=== PATIENT | female | born 1995 | race Caucasian/White ===

== ENCOUNTER 2018-01-05 21:09 | Emergency (ER) | payer SELFPAY ==
--- NOTE | 2018-01-05 23:46 | ER Document Report ---
ED Respiratory Problem - General Chief Complaint: Breathing Difficulty Stated Complaint: BREATHING DIFFICULTY Time Seen by Provider: 01/05/18 23:35 Notes: Patient is a 22-year-old female that comes emergency department for chief complaint of discomfort when taking deep breath for the past 5 hours. She states that when she presented she will feel pain across her entire chest. She states when she is breathing normally she feels okay. She denies wheezing, cough, congestion, fever, injury, dizziness, back pain. She states she had pleurisy once in the past and this feels similar. Past medical history of Asthma, used her inhaler once but did not change anything. Only other medical history is jaw surgery. TRAVEL OUTSIDE OF THE [place] IN LAST 30 DAYS: No - Related Data Allergies/Adverse Reactions: No Known Allergies Allergy (Verified 04/12/12 10:10) Past Medical History - General Information source: Patient - Social History Smoking Status: Never Smoker Frequency of alcohol use: None Drug Abuse: None Lives with: Alone Family History: Reviewed & Not Pertinent Patient has suicidal ideation: No Patient has homicidal ideation: No Pulmonary Medical History: Reports: Hx Asthma Renal/ Medical History: Denies: Hx Peritoneal Dialysis Psychiatric Medical History: Reports: Hx Anxiety, Hx Depression - mood disorder - Immunizations Immunizations up to date: Yes Hx Diphtheria, Pertussis, Tetanus Vaccination: Yes Review of Systems - Review of Systems Constitutional: No symptoms reported EENT: No symptoms reported Cardiovascular: See HPI Respiratory: See HPI Gastrointestinal: No symptoms reported Genitourinary: No symptoms reported Female Genitourinary: No symptoms reported Musculoskeletal: No symptoms reported Skin: No symptoms reported Hematologic/Lymphatic: No symptoms reported Neurological/Psychological: No symptoms reported Physical Exam - Vital signs Vitals: Temp Pulse Resp BP Pulse Ox 98.7 F 61 15 108/60 100 01/05/18 22:55 01/05/18 22:55 01/05/18 22:55 01/05/18 22:55 01/05/18 22:55 - Notes Notes: GENERAL: Alert, interacts well. No acute distress. HEAD: Normocephalic, atraumatic. EYES: Pupils equal, round, and reactive to light. Extraocular movements intact. ENT: Oral mucosa moist, tongue midline. NECK: Full range of motion. Supple. Trachea midline. LUNGS: Clear to auscultation bilaterally, no wheezes, rales, or rhonchi. No respiratory distress. HEART: Regular rate and rhythm. No murmur ABDOMEN: Soft, non-tender. Non-distended. Bowel sounds present in all 4 quadrants. EXTREMITIES: Moves all 4 extremities spontaneously. No edema, normal radial and dorsalis pedis pulses bilaterally. No cyanosis. BACK: no cervical, thoracic, lumbar midline tenderness. No saddle anesthesia, normal distal neurovascular exam. NEUROLOGICAL: Alert and oriented x3. Normal speech. [cranial nerves II through XII grossly intact]. PSYCH: Normal affect, normal mood. SKIN: Warm, dry, normal turgor. No rashes or lesions noted. Course - Re-evaluation Re-evalutation: Patient alert and well-appearing, no signs of discomfort, clear lungs on auscultation, vital signs unremarkable. No hypoxia. Chest x-ray unremarkable, EKG unremarkable with no findings suggestive of pericarditis, pneumothorax, or acute process explaining her pleuritic pain. Possible pleurisy although this is not definite, low suspicion of emergent etiology based on her evaluation and examination. I discussed results with patient and mother, patient was provided with a dose of dexamethasone, refilled her inhaler and provided her with a spacer for future needs, discussed follow- up and return precautions, they state understanding and agreement. - Vital Signs Vital signs: Temp Pulse Resp BP Pulse Ox 98.7 F 54 L 16 97/60 L 96 01/05/18 22:55 01/06/18 01:50 01/06/18 01:50 01/06/18 01:50 01/06/18 01:50 Discharge - Discharge Clinical Impression: Pleuritic chest pain Condition: Stable Disposition: HOME, SELF-CARE Additional Instructions: Your workup does not show any concerning abnormality, your symptoms and evaluation are most consistent with pleurisy. You have been medicated for this. Use albuterol as needed for wheezing/cough as prescribed. Follow-up with primary care. Return if you worsen including spiking fever, coughing up blood, difficulty breathing, passing out, or any other concerning or worsening symptoms. Prescriptions: Albuterol Sulfate [Proair HFA Inhalation Aerosol 8.5 gm MDI] 2 puff IH Q4H PRN # 1 mdi PRN Reason:
--- NOTE | 2018-01-06 01:10 | RADIOLOGY REPORT (SQ) ---
EXAM DESCRIPTION: XR CHEST 2 VIEWS COMPLETED DATE/TME: 01/05/2018 23:44 CLINICAL HISTORY: 22 years, Female, chest pain COMPARISON: 09/10/2012 NUMBER OF VIEWS: Two view TECHNIQUE: PA and lateral chest LIMITATIONS: None. FINDINGS: Cardiac size is within normal limits. Mediastinal contour is within normal limits. No pneumothorax or pleural fluid. No consolidation. IMPRESSION: No evidence of acute process 2010 [employer]- All Rights Reserved
[2018-01-06] MEDS ORDERED: ALBUTEROL SULFATE HFA (90 MCG/PUFF) 8 GM MDI (1 MDI/ER DISP) IH ONE (01:22)
[2018-01-06] MEDS ORDERED: DEXAMETHASONE SOD PHOS INJ 10 MG/1 ML VIAL IM ONE (01:22)
[2018-01-06 04:00] VITALS: BP 97/60
--- NOTE | 2018-01-06 08:01 | EKG REPORT ---
SEVERITY:- NORMAL ECG - SINUS RHYTHM : Confirmed by: Lisa Fernando MD 06-Jan-2018 08:00:23
== END 2018-01-06 01:55 | disposition home or self-care (01) ==
LOC: ER 21:09
DX: R07.81 Pleurodynia (principal); R07.1 Chest pain on breathing; J45.909 Unspecified asthma, uncomplicated
CPT/HCPCS: 93005; 99285; 96372; 71046; 93010; J1100; J3490

== ENCOUNTER 2018-02-26 07:46 | Emergency (ER) | payer SELFPAY ==
[2018-02-26 07:51] VITALS: BP 123/77
--- NOTE | 2018-02-26 08:41 | ER Document Report ---
ED General - General Chief Complaint: Inability to Void Stated Complaint: URINARY ISSUE Time Seen by Provider: 02/26/18 08:11 Mode of Arrival: Ambulatory Information source: Patient Notes: 23-year-old female with asthma, depression, anxiety presents with complaint of dysuria and inability to urinate. Patient states she began having pain with urination approximately 10 days ago. She reports foul-smelling urine. She states that she gets urinary tract infections often but they usually self resolved. Today she states that she feels like her urethra is swollen, tender. She has not been able to urinate for 24 hours. She does have some suprapubic abdominal fullness and pressure. She denies any vaginal discharge. Last menstrual period was 2 days ago. She is not currently sexually active. She has no concern for STDs. She denies any prior similar symptoms. She states that she takes no medications on a daily basis. She denies any trauma to the labia or urethra. TRAVEL OUTSIDE OF THE [place] IN LAST 30 DAYS: No - HPI Onset: Last week Onset/Duration: Gradual, Persistent, Worse Quality of pain: Burning, Pressure Severity: Mild Associated symptoms: denies: Chest pain, Diarrhea, Fever, Nausea, Vomiting Exacerbated by: Denies Relieved by: Denies Similar symptoms previously: Yes Recently seen / treated by doctor: No - Related Data Allergies/Adverse Reactions: No Known Allergies Allergy (Verified 04/12/12 10:10) Past Medical History - General Information source: Patient, [facility] Records - Social History Smoking Status: Never Smoker Frequency of alcohol use: None Drug Abuse: None Lives with: Family Family History: Reviewed & Not Pertinent Patient has suicidal ideation: No Patient has homicidal ideation: No Pulmonary Medical History: Reports: Hx Asthma Renal/ Medical History: Denies: Hx Peritoneal Dialysis Psychiatric Medical History: Reports: Hx Anxiety, Hx Depression - mood disorder - Immunizations Immunizations up to date: Yes Hx Diphtheria, Pertussis, Tetanus Vaccination: Yes Review of Systems - Review of Systems Notes: REVIEW OF SYSTEMS: CONSTITUTIONAL : Denies fever, chills, or sweats. Denies recent illness. Denies weight loss, recent hospitalizations. EENT: Denies visual changes, eye pain. Denies nasal or sinus congestion or discharge. Denies sore throat, oral lesions, difficulty swallowing. CARDIOVASCULAR: Denies chest pain. Denies palpitations. Denies lower extremity edema. RESPIRATORY: Denies cough, cold, or chest congestion. Denies shortness of breath, wheezing. GASTROINTESTINAL: Denies abdominal pain Denies nausea, vomiting, or diarrhea. Denies blood in vomitus, stools, or per rectum. Denies black, tarry stools. Denies constipation. GENITOURINARY: Denies vaginal discharge. MUSCULOSKELETAL: Denies back or neck pain or stiffness. Denies joint pain or swelling. SKIN: Denies rash, lesions or sores. HEMATOLOGIC : Denies easy bruising or bleeding. LYMPHATIC: Denies swollen glands. NEUROLOGICAL: Denies confusion or altered mental status. Denies passing out or loss of consciousness. Denies dizziness or lightheadedness. Denies headache. Denies weakness or paralysis. Denies problems difficulty with ambulation, slurred speech. Denies sensory loss, numbness, or tingling. Denies seizures. PSYCHIATRIC: Denies anxiety or stress. Denies depression, suicidal ideation, or homicidal ideation. Denies visual or auditory hallucinations. Physical Exam - Vital signs Vitals: Temp Pulse Resp BP Pulse Ox 98.2 F 65 16 123/77 98 02/26/18 07:50 02/26/18 07:50 02/26/18 07:50 02/26/18 07:50 02/26/18 07:50 Interpretation: No: Hypertensive, Hypoxic, Febrile - Notes Notes: PHYSICAL EXAMINATION: GENERAL: Well-appearing, well-nourished and in no acute distress. HEAD: Atraumatic, normocephalic. EYES: Pupils equal round and reactive to light, extraocular movements intact, conjunctiva are normal. ENT: Nares patent, oropharynx clear without exudates. Moist mucous membranes. NECK: Normal range of motion, supple without lymphadenopathy LUNGS: Breath sounds clear to auscultation bilaterally and equal. No wheezes rales or rhonchi. HEART: Regular rate and rhythm without murmurs ABDOMEN: Soft, nontender, nondistended abdomen. No guarding, no rebound. No masses appreciated. Female : No obvious swelling to the urethra or labia. Musculoskeletal: Normal range of motion, no pitting or edema. No cyanosis. NEUROLOGICAL: Cranial nerves grossly intact. Normal speech, normal gait. Normal sensory, motor exams PSYCH: Normal mood, normal affect. SKIN: Warm, Dry, normal turgor, no rashes or lesions noted. Bedside ultrasound of the bladder was performed to assess volume. Patient has 30 cc at this time. Course - Re-evaluation Re-evalutation: Laboratory 02/26/18 09:56 Urine Color YELLOW Urine Appearance CLOUDY Urine pH 5.0 Ur Specific [place] 1.024 Urine Protein 30 H Urine Glucose (UA) NEGATIVE Urine Ketones NEGATIVE Urine Blood SMALL H Urine Nitrite POSITIVE H Urine Bilirubin NEGATIVE Urine Urobilinogen NEGATIVE Ur Leukocyte Esterase LARGE H Urine WBC (Auto) >182 Urine RBC (Auto) 20 Urine Bacteria (Auto) 2+ Squamous Epi Cells Auto 1 U Non-Squamous Epis Auto 3 Calcium Oxalate Cr Auto FEW Urine Mucus (Auto) MANY Urine Ascorbic Acid 40 H Urine HCG, Qual NEGATIVE 02/26/18 11:12 3-year-old female with asthma, depression, anxiety presents with complaint of dysuria and inability to urinate. Patient states she began having pain with urination approximately 10 days ago. She reports foul-smelling urine. She states that she gets urinary tract infections often but they usually self resolved. Today she states that she feels like her urethra is swollen, tender. She has not been able to urinate for 24 hours. She does have some suprapubic abdominal fullness and pressure. She denies any vaginal discharge. Last menstrual period was 2 days ago. She is not currently sexually active. She has no concern for STDs. She denies any prior similar symptoms. She states that she takes no medications on a daily basis. She denies any trauma to the labia or urethra. Patient was seen by myself upon arrival. Vital signs were reviewed. Patient is afebrile, normotensive and not hypoxic. Patient does not appear toxic or dehydrated. They are in no acute distress. Previous medical records and nursing notes reviewed. Physical exam within normal limits. Bedside ultrasound was performed to assess for urinary retention and only showed 30 cc of urine. Patient did receive IV fluids, Rocephin during her ED course. She will be discharged home with prescription for Keflex. Patient provided the opportunity to ask questions, and express concerns. Discharge instructions discussed. Patient is agreeable with discharge home. Return indications explained and discussed with the patient who displays understanding. Patient encouraged to return to the emergency department immediately with any concerns. 02/26/18 11:12 - Vital Signs Vital signs: Temp Pulse Resp BP Pulse Ox 98.2 F 65 16 123/77 98 02/26/18 07:50 02/26/18 07:50 02/26/18 07:50 02/26/18 07:50 02/26/18 07:50 - Laboratory Laboratory results interpreted by me: 02/26/18 09:56 Urine Protein 30 H Urine Blood SMALL H Urine Nitrite POSITIVE H Ur Leukocyte Esterase LARGE H Urine Ascorbic Acid 40 H Procedures - Ultrasound/Bedside Ultrasound/Bedside Time completed: 08:41 - Bedside ultrasound of the bladder was performed to assess volume. Images were taken in transverse and sagittal views. Volume is approximately 30 cc not indicative of urinary retention. Images attached to chart. Discharge - Discharge Clinical Impression: Dysuria, Pain in urethra UTI (urinary tract infection) Qualifiers: Urinary tract infection type: site unspecified Hematuria presence: with hematuria Qualified Code(s): N39.0 - Urinary tract infection, site not specified ; R31.9 - Hematuria, unspecified; R31.9 - Hematuria, unspecified Hematuria Qualifiers: Hematuria type: unspecified type Qualified Code(s): R31.9 - Hematuria, unspecified Condition: Good Disposition: HOME, SELF-CARE Instructions: Urinary Tract Infection ([facility]) Additional Instructions: Please return to the emergency department if you are unable to take your antibiotics, develop fever or persistent vomiting. Follow up with your physician tomorrow for further care or return to the ED IMMEDIATELY if symptoms worsen or new concerns occur. If you cannot afford to follow up with your primary care physician a list of low cost clinics have been provided at the end of your discharge papers as well. Prescriptions: Cephalexin Monohydrate [Keflex 500 mg Capsule] 500 mg PO BID 5 Days #14 capsule Forms: Return to Work
[2018-02-26] MEDS ORDERED: RINGERS SOLUTION,LACTATED 1,000 ML IV ONE (09:26)
[2018-02-26 10:47] LABS: APPEARANCE,URINE CLOUDY; BILIRUBIN,URINE NEGATIVE (NEGATIVE); CALCIUM OXALATE CRYSTALS,URINE FEW /HPF; COLOR,URINE YELLOW; GLUCOSE, URINE NEGATIVE (NEGATIVE); KETONES,URINE NEGATIVE (NEGATIVE); LEUKOCYTE ESTERASE,URINE LARGE (NEGATIVE); NITRITE,URINE POSITIVE (NEGATIVE); PROTEIN,URINE 30 mg/dL (NEGATIVE); URINE SPECIFIC GRAVITY 1.024; UROBILINOGEN,URINE NEGATIVE mg/dL (<2.0)
[2018-02-26] MEDS ORDERED: CEFTRIAXONE 1 GM/D5W RTU 1 GM/50 ML RTUPB IV ONE (11:11)
[2018-02-26] MEDS ORDERED: CEFTRIAXONE INJ 1000 MG VIAL IV ONE (11:30)
== END 2018-02-26 12:27 | disposition home or self-care (01) ==
LOC: ER 07:46
DX: N39.0 Urinary tract infection, site not specified (principal); R31.9 Hematuria, unspecified
CPT/HCPCS: 99284; 96361; 96374; 81025; 81001; J0696; J7120

== ENCOUNTER 2018-03-08 05:26 | Emergency (ER) | payer SELFPAY ==
--- NOTE | 2018-03-08 05:51 | ER Document Report ---
ED Medical Screen (RME) - General Chief Complaint: Breathing Difficulty Stated Complaint: LIGHT HEADED, SHORTNESS OF BREATH Time Seen by Provider: 03/08/18 05:42 Notes: 23-year-old female with general complaints of dizziness, tightness in her chest , and awakening suddenly from sleep drenched in sweat. She states that she nightly wakes up feeling short of breath and then it quickly resolves. Past medical history of asthma, uses inhaler. TRAVEL OUTSIDE OF THE [place] IN LAST 30 DAYS: No - Related Data Allergies/Adverse Reactions: No Known Allergies Allergy (Verified 04/12/12 10:10) Past Medical History Pulmonary Medical History: Reports: Hx Asthma Renal/ Medical History: Denies: Hx Peritoneal Dialysis Psychiatric Medical History: Reports: Hx Anxiety, Hx Depression - mood disorder - Immunizations Immunizations up to date: Yes Hx Diphtheria, Pertussis, Tetanus Vaccination: Yes Physical Exam - Respiratory Respiratory status: No respiratory distress. No: Respiratory distress Chest status: Nontender. No: Tender Breath sounds: Normal. No: Decreased air movement, Wheezing
--- NOTE | 2018-03-08 06:23 | RADIOLOGY REPORT (SQ) ---
EXAM DESCRIPTION: XR CHEST 1 VIEW COMPLETED DATE/TME: 03/08/2018 05:49 CLINICAL HISTORY: chest tightness COMPARISON: 01/06/2018 FINDINGS: Single frontal view of the chest. The cardiomediastinal silhouette has normal size and contour. No consolidation, pneumothorax, or pleural effusion. No displaced rib fractures identified. Upper abdominal soft tissues are unremarkable. IMPRESSION: 1. No acute pulmonary process identified.
[2018-03-08 06:54] LABS: ABSOLUTE EOSINOPHILS # (AUTO) 0.1 10^3/uL (0.0-0.6); ABSOLUTE LYMPHOCYTES (AUTO) 2.6 10^3/uL (0.5-4.7); ABSOLUTE MONOCYTES (AUTO) 0.6 10^3/uL (0.1-1.4); ABSOLUTE NEUT (AUTO) 1.6 10^3/uL (1.7-8.2); BASOPHILS % (AUTO) 0.5 % (0-2); EOSINOPHILS % (AUTO) 1.1 % (0-6); HEMATOCRIT 38.6 % (36.0-47.0); HEMOGLOBIN 13.5 g/dL (12.0-15.5); LYMPHOCYTES % (AUTO) 52.7 % (13-45); MEAN CORPUSCULAR HEMOGLOBIN 31.1 pg (27.0-33.4); MEAN CORPUSCULAR VOLUME 89 fl (80-97); MONOCYTES % (AUTO) 13.1 % (3-13); PLATELET COUNT 209 10^3/uL (150-450); RED BLOOD COUNT 4.33 10^6/uL (3.72-5.28); SEGMENTED NEUTROPHILS % (AUTO) 32.6 % (42-78); TOTAL CELLS COUNTED % (AUTO) 100 %; WHITE BLOOD COUNT 4.8 10^3/uL (4.0-10.5)
[2018-03-08 07:34] LABS: ANION GAP 12 (5-19); BLOOD UREA NITROGEN 12 mg/dL (7-20); CALCIUM 9.2 mg/dL (8.4-10.2); CARBON DIOXIDE 23 mmol/L (22-30); CHLORIDE 107 mmol/L (98-107); GLUCOSE 92 mg/dL (75-110); POTASSIUM 4.4 mmol/L (3.6-5.0)
--- NOTE | 2018-03-08 08:06 | ER Document Report ---
ED General - General Chief Complaint: Breathing Difficulty Stated Complaint: LIGHT HEADED, SHORTNESS OF BREATH Time Seen by Provider: 03/08/18 05:42 TRAVEL OUTSIDE OF THE [place] IN LAST 30 DAYS: No - HPI Patient complains to provider of: Lightheadedness shortness of breath trouble sleeping Notes: Patient coming in for evaluation for the above-stated symptoms. Patient states her last month and a half she has been waking up in the middle night with the symptoms. States the symptoms usually last only for a few seconds lasting longer tonight along with diaphoresis. Patient upon my evaluation is asymptomatic. Patient denies having any night terrors night tremors denies having these episodes in the past. Patient denies any increased stress in her life denies any issues with anxiety or depression. Patient denies drug abuse. Resting asleep on my evaluation denies any past medical history. - Related Data Allergies/Adverse Reactions: No Known Allergies Allergy (Verified 04/12/12 10:10) Past Medical History - Social History Smoking Status: Never Smoker Frequency of alcohol use: Rare Family History: Reviewed & Not Pertinent Patient has suicidal ideation: No Patient has homicidal ideation: No Pulmonary Medical History: Reports: Hx Asthma Renal/ Medical History: Denies: Hx Peritoneal Dialysis Psychiatric Medical History: Reports: Hx Anxiety, Hx Depression - mood disorder - Immunizations Immunizations up to date: Yes Hx Diphtheria, Pertussis, Tetanus Vaccination: Yes Review of Systems - Review of Systems Constitutional: Other - Lightheadedness dizziness diaphoresis upon awakening EENT: No symptoms reported Cardiovascular: No symptoms reported Respiratory: No symptoms reported Gastrointestinal: No symptoms reported Genitourinary: No symptoms reported Female Genitourinary: No symptoms reported Musculoskeletal: No symptoms reported Skin: No symptoms reported Hematologic/Lymphatic: No symptoms reported Neurological/Psychological: No symptoms reported Physical Exam - Vital signs Vitals: Temp Pulse Resp BP Pulse Ox 98.5 F 61 18 102/65 98 03/08/18 05:34 03/08/18 05:34 03/08/18 05:34 03/08/18 05:34 03/08/18 05:34 Interpretation: Normal - General General appearance: Appears well, Alert - HEENT Head: Normocephalic, Atraumatic Eyes: Normal Pupils: PERRL - Respiratory Respiratory status: No respiratory distress Chest status: Nontender Breath sounds: Normal Chest palpation: Normal - Cardiovascular Rhythm: Regular Heart sounds: Normal auscultation Murmur: No - Abdominal Inspection: Normal Distension: No distension Bowel sounds: Normal Tenderness: Nontender Organomegaly: No organomegaly - Back Back: Normal, Nontender - Extremities General upper extremity: Normal inspection, Nontender, Normal color, Normal ROM , Normal temperature General lower extremity: Normal inspection, Nontender, Normal color, Normal ROM , Normal temperature, Normal weight bearing. No: Power's sign - Neurological Neuro grossly intact: Yes Cognition: Normal Orientation: AAOx4 [place] Coma Scale Eye Opening: Spontaneous [place] Coma Scale Verbal: Oriented [place] Coma Scale Motor: Obeys Commands [place] Coma Scale Total: 15 Speech: Normal Motor strength normal: LUE, RUE, LLE, RLE Sensory: Normal - Psychological Associated symptoms: Normal affect, Normal mood - Skin Skin Temperature: Warm Skin Moisture: Dry Skin Color: Normal Course - Vital Signs Vital signs: Temp Pulse Resp BP Pulse Ox 98.5 F 61 18 102/65 98 03/08/18 05:34 03/08/18 05:34 03/08/18 05:34 03/08/18 05:34 03/08/18 05:34 - Laboratory Result Diagrams: 03/08/18 06:40 03/08/18 06:40 Laboratory results interpreted by me: 03/08/18 06:40 Seg Neutrophils % 32.6 L Lymphocytes % 52.7 H Monocytes % 13.1 H Absolute Neutrophils 1.6 L Discharge - Discharge Clinical Impression: Sleep disorder Condition: Good Disposition: HOME, SELF-CARE Instructions: Anxiety ([facility]) Additional Instructions: Laboratory studies do not show any signs of significant pathology. At this time he may have underlying anxiety causing sleep disturbance. I recommend trying the Vistaril as prescribed. Also recommend following up with the food products tester listed Dr. Garay is that he will be able to perform sleep studies. Also recommend following up with your primary care physician. Return to the ER symptoms worsen. Prescriptions: Hydroxyzine Pamoate [Vistaril 25 mg Capsule] 25 mg PO QHS #14 capsule Forms: Return to Work
[2018-03-08 08:38] LABS: APPEARANCE,URINE SLIGHTLY-CLOUDY; BILIRUBIN,URINE NEGATIVE (NEGATIVE); COLOR,URINE STRAW; GLUCOSE, URINE NEGATIVE (NEGATIVE); KETONES,URINE NEGATIVE (NEGATIVE); LEUKOCYTE ESTERASE,URINE NEGATIVE (NEGATIVE); NITRITE,URINE NEGATIVE (NEGATIVE); PROTEIN,URINE NEGATIVE (NEGATIVE); URINE SPECIFIC GRAVITY 1.006; UROBILINOGEN,URINE NEGATIVE mg/dL (<2.0)
[2018-03-08 09:02] LABS: URINE AMPHETAMINES SCREEN NEGATIVE; URINE BARBITURATES SCREEN NEGATIVE; URINE BENZODIAZEPINES SCREEN NEGATIVE; URINE COCAINE SCREEN NEGATIVE; URINE MARIJUANA (THC) SCREEN NEGATIVE; URINE METHADONE SCREEN NEGATIVE; URINE PHENCYCLIDINE SCREEN NEGATIVE
[2018-03-08 10:04] VITALS: BP 98/59
--- NOTE | 2018-03-09 08:23 | EKG REPORT ---
SEVERITY:- NORMAL ECG - SINUS RHYTHM , SINUS ARRHYTHMIA : Confirmed by: John Sharp MD 09-Mar-2018 08:23:03
== END 2018-03-08 10:04 | disposition home or self-care (01) ==
LOC: ER 05:26
DX: G47.9 Sleep disorder, unspecified (principal); J45.909 Unspecified asthma, uncomplicated; R06.02 Shortness of breath; R42 Dizziness and giddiness; R61 Generalized hyperhidrosis
CPT/HCPCS: 36415; 71045; 80048; 80307; 81001; 81025; 85025; 93005; 93010; 99285

== ENCOUNTER 2018-07-17 23:08 | Emergency (ER) | payer SELFPAY ==
[2018-07-18] MEDS ORDERED: ASPIRIN 81 MG TABLET, CHEWABLE PO ONE (02:54)
[2018-07-18 03:37] LABS: ABSOLUTE EOSINOPHILS # (AUTO) 0.1 10^3/uL (0.0-0.6); ABSOLUTE LYMPHOCYTES (AUTO) 3.3 10^3/uL (0.5-4.7); ABSOLUTE MONOCYTES (AUTO) 0.5 10^3/uL (0.1-1.4); ABSOLUTE NEUT (AUTO) 1.6 10^3/uL (1.7-8.2); BASOPHILS % (AUTO) 0.6 % (0-2); EOSINOPHILS % (AUTO) 1.7 % (0-6); HEMATOCRIT 43.2 % (36.0-47.0); HEMOGLOBIN 14.8 g/dL (12.0-15.5); LYMPHOCYTES % (AUTO) 59.5 % (13-45); MEAN CORPUSCULAR HEMOGLOBIN 30.3 pg (27.0-33.4); MEAN CORPUSCULAR HGB CONC 34.2 g/dL (32.0-36.0); MEAN CORPUSCULAR VOLUME 89 fl (80-97); MONOCYTES % (AUTO) 9.2 % (3-13); PLATELET COUNT 233 10^3/uL (150-450); RED BLOOD COUNT 4.88 10^6/uL (3.72-5.28); TOTAL CELLS COUNTED % (AUTO) 100 %; WHITE BLOOD COUNT 5.5 10^3/uL (4.0-10.5)
[2018-07-18 04:15] LABS: ALANINE AMINOTRANSFERASE 9 U/L (9-52); ALBUMIN 4.5 g/dL (3.5-5.0); ALKALINE PHOSPHATASE 57 U/L (38-126); ANION GAP 11 (5-19); ASPARTATE AMINO TRANSFERASE 21 U/L (14-36); BILIRUBIN,DIRECT 0.2 mg/dL (0.0-0.4); BILIRUBIN,TOTAL 0.7 mg/dL (0.2-1.3); BLOOD UREA NITROGEN 11 mg/dL (7-20); CALCIUM 9.7 mg/dL (8.4-10.2); CARBON DIOXIDE 22 mmol/L (22-30); CHLORIDE 110 mmol/L (98-107); CREATINE KINASE 44 U/L (30-135); GLUCOSE 121 mg/dL (75-110); POTASSIUM 3.9 mmol/L (3.6-5.0); SODIUM 143.2 mmol/L (137-145); TOTAL PROTEIN 7.4 g/dL (6.3-8.2)
[2018-07-18 04:40] LABS: CREATINE KINASE MB < 0.22 ng/mL (<4.55); TROPONIN I < 0.012 ng/mL
--- NOTE | 2018-07-18 04:49 | RADIOLOGY REPORT (SQ) ---
EXAM DESCRIPTION: XR CHEST 1 VIEW COMPLETED DATE/TME: 07/18/2018 02:54 CLINICAL HISTORY: 23 years, Female, Chest Pain COMPARISON: 01/06/2018 NUMBER OF VIEWS: One TECHNIQUE: AP view of the chest LIMITATIONS: None. FINDINGS: Lungs are clear. The heart is normal in size. There is no pneumothorax or pleural effusion. There is no acute fracture IMPRESSION: No acute cardiopulmonary abnormality copyright 2010 [employer]- All Rights Reserved
[2018-07-18] MEDS ORDERED: IBUPROFEN 400 MG TABLET PO ONE (05:12)
--- NOTE | 2018-07-18 05:12 | ER Document Report ---
ED General - General Chief Complaint: Breathing Difficulty Stated Complaint: CHEST PAIN,DIZZINESS,DIFFICULTY BREATHING Time Seen by Provider: 07/18/18 04:59 Notes: Patient is a pleasant 23-year-old female presents with complaint of pain over le ft lower rib cage. No fevers. No cough or congestion. No abdominal pain. She has been ongoing for several days. Says the pain is very sharp and it occurs mostly when she goes lay on her back on her left side. It hurts when she coughs or takes a deep breath. She has a previous history of pleurisy. No recent travel outside the country. No leg pain or leg edema. No fevers. No other complaints at this time. TRAVEL OUTSIDE OF THE [place] IN LAST 30 DAYS: No - Related Data Allergies/Adverse Reactions: No Known Allergies Allergy (Verified 04/12/12 10:10) Past Medical History - Social History Smoking Status: Never Smoker Frequency of alcohol use: None Drug Abuse: None Family History: Reviewed & Not Pertinent Patient has suicidal ideation: No Patient has homicidal ideation: No Pulmonary Medical History: Reports: Hx Asthma Renal/ Medical History: Denies: Hx Peritoneal Dialysis Psychiatric Medical History: Reports: Hx Anxiety, Hx Depression - mood disorder - Immunizations Immunizations up to date: Yes Hx Diphtheria, Pertussis, Tetanus Vaccination: Yes Review of Systems - Review of Systems Notes: My Normal Review Basic REVIEW OF SYSTEMS: CONSTITUTIONAL : Denies fever, chills, or sweats. Denies recent illness. EENT: Denies eye, ear, throat, or mouth pain or symptoms. Denies nasal or sinus congestion. CARDIOVASCULAR: Over left lower costochondral junction. RESPIRATORY: Denies cough, cold, or chest congestion. Denies shortness of breath, difficulty breathing, or wheezing. GASTROINTESTINAL: Denies abdominal pain. Denies nausea, vomiting, or diarrhea. Denies constipation. Last BM: MUSCULOSKELETAL: Denies neck or back pain or joint pain or swelling. SKIN: Denies rash or skin lesions. ALL OTHER SYSTEMS REVIEWED AND NEGATIVE. Physical Exam - Vital signs Vitals: Temp Pulse Resp BP Pulse Ox 98.1 F 66 16 115/69 100 07/17/18 23:15 07/17/18 23:15 07/17/18 23:15 07/17/18 23:15 07/17/18 23:15 - Notes Notes: General Appearance: Well nourished, alert, cooperative, no acute distress, moderate obvious discomfort. Vitals: reviewed, See vital signs table. Head: no swelling or tenderness to the head Eyes: PERRL, EOMI, Conjuctiva clear Mouth: No decreasd moisture Chest wall: Pain to palpation over left lower rib cage at the costochondral junction that is easily reproducible palpation and pinpoint and very sharp in nature and pain. Patient has mild pain over the anterior costochondral junction when I on the posterior rib angle. Lungs: No wheezing, No rales, No rhonci, No accessory muscle use, good air exchange bilaterally. Heart: Normal rate, Regular rythm, No murmur, no rub Skin: warm, dry, appropriate color, no rash Neuro: speech clear, oriented x 3, normal affect, responds appropriately to questions. Course - Re-evaluation Re-evalutation: 07/18/18 08:16 Patient has what appears to be costochondritis. She has very easily reproduced pain palpation at the costochondral junction. She is PERC rule negative. I do not feel that she needs workup for PE. Her pain is easily reproducible palpation. I feel she safe to be discharged home. I encouraged her return to ER if she has difficulty breathing, fevers, or feels unwell in any way. Patient agrees with plan will be discharged home. Dictation of this chart was performed using voice recognition software; therefore, there may be some unintended grammatical errors. - Vital Signs Vital signs: Temp Pulse Resp BP Pulse Ox 98.0 F 70 16 99/60 L 98 07/18/18 05:43 07/18/18 05:43 07/18/18 05:43 07/18/18 05:43 07/18/18 05:43 - Laboratory Result Diagrams: 07/18/18 03:00 07/18/18 03:50 Laboratory results interpreted by me: 07/18/18 07/18/18 03:00 03:50 Seg Neutrophils % 29.0 L Lymphocytes % 59.5 H Absolute Neutrophils 1.6 L Chloride 110 H Glucose 121 H Discharge - Discharge Clinical Impression: Chest pain Qualifiers: Chest pain type: unspecified Qualified Code(s): R07.9 - Chest pain, unspecified Condition: Good Disposition: HOME, SELF-CARE Additional Instructions: Please take ibuprofen 400 mg every 6 hours with food for pain. You can also take 500 mg of Tylenol every 4 hours to help with the pain and inflammation. I suspect that likely your pain is being caused by something called costochondritis. This is inflammation of the rib cartilage where the rib meets the cartilage. Please try lying on the right side at night to help relieve pressure off the left side of the ribs. Please return to the ER if you have difficulty breathing, coughing up of blood, fevers, or feel unwell. Forms: Return to Work
[2018-07-18 05:46] VITALS: BP 99/60
--- NOTE | 2018-07-18 12:44 | EKG REPORT ---
SEVERITY:- OTHERWISE NORMAL ECG - SINUS ARRHYTHMIA, RATE [id number] : Confirmed by: Lisa Fernando MD 18-Jul-2018 12:43:37
== END 2018-07-18 05:46 | disposition home or self-care (01) ==
LOC: ER 23:08
DX: R07.81 Pleurodynia (principal); J45.909 Unspecified asthma, uncomplicated
CPT/HCPCS: 93005; 99284; 36415; 82553; 82550; 85025; 80053; 84484; 71045; 93010; J3490